=== PATIENT | female | born 1995 | race Hispanic/Latino ===

== ENCOUNTER 2021-06-03 12:57 | Emergency (ER) | payer OTHER, SELFPAY ==
--- NOTE | ~2021-06-03 | XR_ITS ---
EXAMINATION: XR chest 1V portable EXAM DATE: 06/03/2021 15:43 INDICATION: Intermitted Cp, Near Syncope, Headache, R Le Pain Today TECHNIQUE: Portable AP frontal chest x-ray was obtained. There is no prior study for comparison. FINDINGS: There is no focal air space disease. There are no pleural effusions. The cardiothymic joaquim houette is normal. There is no pneumothorax. There are no osseous or soft tissue abnormalities in t his skeletally immature patient. Lungs have normal volume. IMPRESSION: No acute cardiopulmonary findings. Reviewed, dictated and finalized at location A. ANALYST
[2021-06-03 13:09] VITALS: BP 128/76; PULSE 84; RESP 16; TEMP 36.8; O2SAT 100
--- NOTE | 2021-06-03 13:13 | ECG_ITS ---
Measurements Intervals [place] Rate: 82 P: 83 MA: 163 QRS: 82 QRSD: 90 T: -17 QT: 364 QTc: 426 Interpretive Statements SINUS RHYTHM NONSPECIFIC ST & T-WAVE ABNORMALITY BORDERLINE ECG NO PREVIOUS ECG AVAILABLE FOR COMPARISON Electronically Signed On 06-03-2021 14:55:19 [employer]PERVISOR [employer]TING by Duane Andres M.D.
[2021-06-03 13:32] LABS: Basophils Percent Auto 0.4 % (0.2-1.2); Eosinophils Percent Auto 0.2 % (0-4.4); Hematocrit 32.5 % (37.0-47.0); Hemoglobin 9.9 g/dL (12.0-15.0); Immature Granulocyte Absolute 0.01 K/mm3 (0.00-0.031); Immature Granulocyte Percent A 0.2 % (0-0.5); Lymphocytes Absolute Auto 1.89 K/mm3 (0.9-3.2); Lymphocytes Percent Auto 34.8 % (18.3-44.2); Mean Corpuscular HGB Conc 30.5 g/dl (32-36); Mean Corpuscular Hemoglobin 23.3 pg (26-34); Mean Corpuscular Volume 76.5 fl (80-100); Mean Platelet Volume 11.9 fl (7.4-10.4); Monocytes Absolute Auto 0.4 K/mm3 (0.1-0.6); Monocytes Percent Auto 6.8 % (2.6-8.5); Neutrophils Absolute Auto 3.1 K/mm3 (1.3-6.7); Neutrophils Percent Auto 57.6 % (45.5-73.1); Platelet Count Result 195 k/mm3 (150-375); Red Blood Count 4.25 M/mm3 (4.2-5.4); Red Cell Distribution Width 16.2 % (11.5-14.5); White Blood Count 5.4 K/mm3 (4.5-10.0)
[2021-06-03 13:41] LABS: Alanine Aminotransferase 16 U/L (4-35); Albumin Level 4.9 g/dL (3.5-5.1); Alkaline Phosphatase 46 U/L (38-126); Anion Gap 11 mmol/L (8-16); Aspartate Amino Transferase 30 U/L (14-36); Bilirubin,Total 0.6 mg/dL (0.2-1.3); Blood Urea Nitrogen 12 mg/dL (7-17); Calcium 9.2 mg/dL (8.4-10.2); Carbon Dioxide 22 mmol/L (22-30); Chloride 107 mmol/L (98-107); Estimated CRCL calculation 88 ml/min; Estimated Glomerular Filt Rate > 60; Glucose 88 mg/dL (65-110); Potassium 3.6 mmol/L (3.4-5.0); Sodium 140 mmol/L (137-145)
--- NOTE | 2021-06-03 14:04 | PC.NURSE ---
PT HAS MULTIPLE COMPLAINTS THAT HAS BEEN GOING ON A LEAST A MONTH. PT REPORTS RANDOM CP AND DYSPNEA ALONG WITH FEELING DIZZY AT TIMES. PT REPORTS S/S FOR A LEAST 1 MONTH.
[2021-06-03 15:00] VITALS: BP 118/72; PULSE 78; RESP 18; TEMP 36.3; O2SAT 100
--- NOTE | 2021-06-03 15:06 | ED.GENADULT ---
HPI - General Adult General Chief complaint: Syncope Stated complaint: syncope Time Seen by Provider: 06/03/21 14:15 Source: patient Mode of arrival: ambulatory Limitations: no limitations History of Present Illness HPI narrative: Patient is 26 years old female presented to the ED complaining of not feeling well for 1 month associated with intermittent dizziness, lightheadedness, chest pain, hard to breathe, lower abdominal cramps and pain, breast pain, Patient denies any fever, chills nausea or vomiting. Patient does not take medicine at home, does not smoke or drink or uses drugs, sexually active, last menstrual cycle 1 week ago Related Data Allergies Allergy/AdvReac Type Severity Reaction Status Date / Time No Known Allergies Allergy Unverified 06/07/12 16:54 Review of Systems Review of Systems: CONSTITUTIONAL: Denies fever, chills, or sweats. EYES: Denies visual changes, redness, or discharge. ENT: Denies rhinorrhea, congestion, sore throat, or otalgia. CARDIOVASCULAR: Denies chest pain, palpitations, or edema. RESPIRATORY: Denies cough or dyspnea. GASTROINTESTINAL: Denies abdominal pain, nausea, vomiting, or diarrhea. GENITOURINARY: Denies dysuria or hematuria. SKIN: Denies rash or itching. MUSCULOSKELETAL: Denies back pain, joint pain, or myalgia. NEUROLOGIC: Denies headache, numbness, or weakness. PSYCHIATRIC: Depression Exam Narrative: General appearance: Well-developed, well-nourished Skin: Normal color Head: Normocephalic, nontraumatic Eyes: Clear conjunctiva ENT: Oropharynx normal, ears normal, nose normal Neck: Supple, nontender Chest and respiratory: Airway patent, no respiratory distress, no accessory muscle use, breast exam showed no abnormalities, no tenderness, no lump, no erythema, no discharge Heart: Regular rate/rhythm Abdomen: Soft, nontender, no organomegaly, quiet bowel sounds Vascular: Normal peripheral pulses, normal capillary refill. Musculoskeletal: Normal range of motion, nontender back Neurologic: Alert and oriented ?3, SENIOR ADVISOR is normal as tested, no gross motor deficit Course Course Emergency Course: Stable Vital Signs Vital signs: Vital Signs Temperature 36.8 C 06/03/21 13:09 Pulse Rate 84 06/03/21 13:09 Respiratory Rate 16 06/03/21 13:09 Blood Pressure 128/76 06/03/21 13:09 Pulse Oximetry 100 06/03/21 13:09 Temperature 36.8 C 06/03/21 13:09 Pulse Rate 84 06/03/21 13:09 Respiratory Rate 16 06/03/21 13:09 Blood Pressure 128/76 06/03/21 13:09 Pulse Oximetry 100 06/03/21 13:09 Medical Decision Making Differential Diagnosis Differential Diagnosis: Anxiety-like symptoms, electrolyte imbalance, hypothyroidism Vital Signs Vital Signs: Vital Signs Temperature 36.8 C 06/03/21 13:09 Pulse Rate 84 06/03/21 13:09 Respiratory Rate 16 06/03/21 13:09 Blood Pressure 128/76 06/03/21 13:09 Pulse Oximetry 100 06/03/21 13:09 Temperature 36.8 C 06/03/21 13:09 Pulse Rate 84 06/03/21 13:09 Respiratory Rate 16 06/03/21 13:09 Blood Pressure 128/76 06/03/21 13:09 Pulse Oximetry 100 06/03/21 13:09 Lab Data Result diagrams: 06/03/21 13:14 06/03/21 13:14 Labs: Lab Results 06/03/21 06/03/21 06/03/21 Range/Units 13:14 13:14 15:37 WBC 5.4 (4.5-10.0) K/mm3 RBC 4.25 (4.2-5.4) M/mm3 Hgb 9.9 L (12.0-15.0) g/dL Hct 32.5 L (37.0-47.0) % MCV 76.5 L (80-100) fl MCH 23.3 L (26-34) pg MCHC 30.5 L (32-36) g/dl RDW 16.2 H (11.5-14.5) % Plt Count 195 (150-375) k/mm3 MPV 11.9 H (7.4-10.4) fl Immature Gran % (Auto) 0.2 (0-0.5) % Neut % (Auto) 57.6 (45.5-73.1) %
[2021-06-03 15:55] LABS: Add Urine Microscopic? YES; Appearance Urine Cloudy (Clear); Bacteria Urine Trace /hpf; Bilirubin Urine Negative (Negative); Blood Urine Negative (Negative); Color Urine Yellow (Yellow); Glucose Urine UA Negative (Negative); Ketones Urine Trace mg/dL (Negative); Leukocyte Esterase Ur Negative LEU/UL (Negative); Mucus Urine Rare /lpf; Nitrate Urine Negative (Negative); Protein Urine Negative (Negative); RBC Urine 0-2 /hpf (0-2); Specific Grav Ur 1.023 (1.001-1.035); Squamous Epithelial Cell Urine Many /hpf (Few); Urobilinogen Urine Negative mg/dL (<2.0); WBC Urine 0-3 /hpf
[2021-06-03 16:00] VITALS: BP 112/68; PULSE 70; RESP 16; TEMP 36.6; O2SAT 99
[2021-06-03 17:00] VITALS: BP 118/70; PULSE 72; RESP 16; TEMP 36.6; O2SAT 100
== END 2021-06-03 17:03 | disposition home or self-care (01) ==
PROVIDERS: Emergency Medicine; Emergency Provider Emergency Medicine; PCP Registered Nurse
DX: R42 Dizziness and giddiness (principal); D64.89 Other specified anemias; F41.9 Anxiety disorder, unspecified; R94.31 Abnormal electrocardiogram [ECG] [EKG]
CPT/HCPCS: 36415; 71045; 80053; 81001; 81025; 85025; 93005; 99283

== ENCOUNTER 2021-11-22 09:25 | Outpatient (CLI) | payer OTHER, SELFPAY ==
--- NOTE | ~2021-11-22 | US_ITS ---
EXAMINATION: US pelvic complete w TV DATE: 11/22/2021 10:04 INDICATION: R10.2 - Pelvic and perineal pain bilateral adnexal pain and cramping. TECHNIQUE: Multiple transabdominal and endovaginal sonographic images of the pelvis were obtained. COMPARISON: None. FINDINGS: Uterus: 7.8 x 3.1 x 4.0 cm. Endometrial complex measures 4 millimeter Right Ovary: 2.2 x 1.4 x 1.8 cm. Vascular flow is present. Left Ovary: 2.4 x 1.3 x 2.1 cm. Vascular flow is present. There is no free fluid in the pelvis. IMPRESSION: Normal pelvic sonogram findings. Reviewed, dictated and finalized at location K.
== END 2021-11-22 09:26 ==
LOC: MICIMG 09:25
PROVIDERS: PCP Student in an Organized Health Care Education/Training Program; Visit Provider Student in an Organized Health Care Education/Training Program
DX: R10.2 Pelvic and perineal pain (principal)
CPT/HCPCS: 76830; 76856

== ENCOUNTER 2022-12-02 17:23 | Emergency (ER) | payer MEDICAID, SELFPAY ==
--- NOTE | 2022-12-02 17:53 | ED.ABDPAIN ---
HPI - Abdominal Pain General Chief Complaint: Abdominal Pain Stated Complaint: Breast/Abdominal Pain Time Seen by Provider: 12/02/22 17:26 Source: patient Mode of arrival: ambulatory Limitations: no limitations Related Data Allergies Allergy/AdvReac Type Severity Reaction Status Date / Time No Known Allergies Allergy Verified 07/08/22 12:22 Review of Systems Review of Systems: All systems reviewed & are unremarkable except as noted in HPI and below Constitutional: Constitutional: Denies body ache(s), Denies chills, Denies fatigue, Denies fever(s), Denies headache(s), Denies malaise and Denies weakness Eyes: Eyes: Denies blurry vision, Denies irritation and Denies loss of vision ENT: Denies otalgia, Denies headache(s), Denies nasal discharge, Denies sinus pain and Denies sore throat Cardiovascular: Cardiovascular: Denies chest pain, Denies irregular heart rhythm and Denies dyspnea Respiratory: Respiratory: Denies dyspnea Gastrointestinal: Gastrointestinal: Denies abdominal pain, Denies melena, Denies hematochezia, Denies diarrhea, Denies nausea and Denies vomiting Musculoskeletal: Musculoskeletal: Denies back pain, Denies myalgias and Denies arthralgias Integumentary/Breasts: Skin/Breast: Denies pruritus and Denies rash Neurologic: Denies headache(s), Denies loss of vision and Denies weakness Psychiatric: Psychiatric: Reports no additional psychiatric complaints Endocrine: Endocrine: Denies fatigue PMFSH Past Medical History Medical History Anemia Surgical History Surgical History No pertinent past surgical history Family History Family History Grandparent Stomach cancer Grandparent Stomach cancer Social History Social History Smoking status: Never smoker Alcohol intake: never Substance use: never Agree to blood products: Yes Comments At time of signature, agree with nursing past medical, surgical, social and family history. There is no relevant family history pertinent to the presenting complaint. Exam Const: General: cooperative, healthy appearing, comfortable, no acute distress and well nourished Nutritional Appearance: well nourished Orientation/consciousness: patient oriented x3 Limitations: no limitations HENMT: Head: normal to inspection, normocephalic and atraumatic Ears: hearing grossly normal bilaterally and external ears normal Face/Nose/Sinus: Normal external nose present, normal facial exam and face symmetric Face and sinus: normal facial exam and face symmetric Mouth: Yes lip normal Eyes: General: appearance normal, both eyes and all related structures Alignment and Position: alignment normal and position normal Periorbital: periorbital findings normal Eyelids: eyelids normal Pupils: Equal, round and reactive pupils present EOM: EOMs intact bilaterally Neck: Neck: normal visual inspection, full ROM and supple Chest: Chest palpation & inspection: normal inspection of the chest Resp: Effort & Inspection: normal respiratory effort and able to speak in complete sentences Auscultation: clear to auscultation bilaterally Cardio: Rate: regular rate Rhythm: regular rhythm Heart sounds: S1 normal heart sound present and S2 normal heart sound present GI: Inspection: normal to inspection Skin: General skin exam: normal color and no rashes or lesions noted Neuro: General: patient oriented x3 and moves all extremities Cranial nerves: Yes Equal, round and reactive pupils present Speech: normal speech Gait exam (Neuro): Normal gait present Extrem: General: normal to inspection, full ROM and no edema Psych: Appearance: grossly normal and well kempt Mental Status: mental status grossly normal Speech and movement: Normal speech and movement present
== END 2022-12-02 18:10 | disposition left against medical advice (07) ==
LOC: EXPCOLL 17:27
PROVIDERS: Emergency Provider Nurse Practitioner Family; PCP Student in an Organized Health Care Education/Training Program
DX: Z53.21 Procedure and treatment not carried out due to patient leaving prior to being seen by health care provider (principal)
CPT/HCPCS: 99199